=== PATIENT | female | born 2000 | race Caucasian/White ===

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

== ENCOUNTER 2021-12-31 08:37 | Emergency (ER) | payer SELFPAY ==
[~2021-12-31] VITALS: Ht 157.5 cm; Wt 113.0 kg
[2021-12-31 08:48] VITALS: BP 134/74
[2021-12-31] MEDS ORDERED: CYCL10TA21 MT (09:31)
[2021-12-31] MEDS ORDERED: NAPR500T7 MT (09:31)
== END 2021-12-31 09:54 | disposition home or self-care (01) ==
LOC: ER 09:11
DX: S39.012A Strain of muscle, fascia and tendon of lower back, initial encounter (principal); V49.40XA Driver injured in collision with unspecified motor vehicles in traffic accident, initial encounter; Y93.89 Activity, other specified; Y92.89 Other specified places as the place of occurrence of the external cause; Y99.8 Other external cause status
CPT/HCPCS: 99283